=== PATIENT | female | born 2000 ===

== ENCOUNTER 2024-03-08 15:31 | Outpatient (REF) | payer OTHER, SELFPAY ==
[2024-03-08 16:54] LABS: Chloride* 101 mmol/L (96-114); Potassium* 3.7 mmol/L (3.6-5.1); Sodium* 137 mmol/L (135-149)
[2024-03-08 16:56] LABS: Creatinine* 0.6 mg/dL (0.5-1.5); Estimated Glomerular Filt Rate 128 ml/min
[2024-03-08 16:57] LABS: Anion Gap 10 mEq/L (7-15); Blood Urea Nitrogen* 9 mg/dL (5-24); Calcium* 9.8 mg/dL (8.4-10.6); Carbon Dioxide* 26 mmol/L (20-32); Glucose* 92 mg/dL (60-115)
[2024-03-08 18:00] LABS: Hemoglobin A1C* 5.5 % (0-5.6)
== END 2024-03-08 15:32 | disposition home or self-care (01) ==
LOC: NPINS 15:31
PROVIDERS: Visit Provider Nurse Practitioner Adult Health
DX: R39.15 Urgency of urination (principal)
CPT/HCPCS: 80048; 83036; 87086